=== PATIENT | female | born 1970 | race Two or more races ===

== ENCOUNTER 2016-07-30 21:12 | Observation (INO) | payer MEDICAID ==
[~2016-07-30] VITALS: Ht 160 cm; Wt 77.1 kg
[~2016-07-30 21:12] MED LIST: ABILIFY; GLYB1POW; LISIPOW; METFORMIN
[2016-07-30 21:44] LABS: Urine RBC None Seen /hpf (0 - 4)
[2016-07-30 21:56] LABS: Basophils # (auto) 0 uL; Basophils % (auto) 0.5 % (0.0-2.0); Eosinophils # (auto) 0.4 uL; Eosinophils % (auto) 4.8 % (0.0-7.0); Hematocrit 36.1 % (36.0-46.0); Hemoglobin 11.6 g/dL (12.2-16.2); Lymphocytes # (auto) 1.9 uL; Lymphocytes % (auto) 23.8 % (10.0-50.0); Mean Corpuscular Hemoglobin 29.2 pg (28.0-32.0); Mean Corpuscular Hgb Conc. 32.3 g/dL (32.0-36.0); Mean Corpuscular Volume 90.3 fL (80.0-100.0); Mean Platelet Volume 10.7 fL (7.4-10.4); Monocytes # (auto) 0.5 uL; Monocytes % (auto) 6.6 % (0.0-12.0); Neutrophils # (auto) 5.2 uL; Neutrophils % (auto) 64.3 % (37.0-80.0); Platelet Count (auto) 312 10^3/uL (140-450); Red Cell Distribution Width 13.1 % (11.6-16.0); White Blood Cell 8.1 10^3/uL (4.4-10.8)
[2016-07-30 22:04] LABS: Albumin 3.6 g/dL (3.4-5.0); Anion Gap 9 (5-15); Aspartate Aminotransferase 6 U/L (15-37); BUN/Creatinine Ratio 14.7; Blood Urea Nitrogen 11 mg/dL (7-18); Calcium 8.4 mg/dL (8.5-10.1); Carbon Dioxide 28 mmol/L (21-32); Chloride 100 mmol/L (98-107); GFR African American 107 mL/min; GFR Non-African American 88 mL/min; Glucose 326 mg/dL (74-106); Magnesium 2.2 mg/dL (1.6-2.6); Potassium 3.6 mmol/L (3.5-5.1); Sodium 137 mmol/L (136-145)
[2016-07-30 22:06] LABS: Urine Bilirubin Negative (Negative); Urine Blood Negative /uL (Negative); Urine Color Yellow (Yellow); Urine Ketone Negative (Negative); Urine Nitrite Negative (Negative); Urine Squamous Epithelial Cell FEW /hpf (<5); Urine Urobilinogen Normal (Negative)
[2016-07-30 22:09] LABS: Alkaline Phosphatase 88 U/L (45-117); Bilirubin, Total 0.2 mg/dL (0.2-1.0); Total Protein 7.8 g/dL (6.4-8.2)
[2016-07-30 22:14] LABS: Urine Glucose 4+ mg/dL (Normal)
[2016-07-30 22:17] LABS: INR 0.97 (0.9-1.15); Partial Thromboplastin Time 26.1 sec (22.64-33.71)
[2016-07-31 01:25] VITALS: BP 122/73
== END 2016-07-31 03:21 | disposition home or self-care (01) | DRG 203 ==
LOC: ER 21:12 → UNDOADMOB 21:13 → OVERFLOW 21:13 → ER 07-31 03:21 → UNDODISOB 07-31 03:21
PROVIDERS: ADMIT Emergency Medicine; ATTEND Emergency Medicine
DX: R07.89 Other chest pain (principal); I10 Essential (primary) hypertension; E10.9 Type 1 diabetes mellitus without complications; F41.9 Anxiety disorder, unspecified; M79.7 Fibromyalgia; Z79.4 Long term (current) use of insulin
CPT/HCPCS: 36415; 71010; 80053; 81001; 81025; 82962; 83735; 84484; 85025; 85610; 85730; 93005; 99285; G0378; G0434

== ENCOUNTER 2017-04-18 17:02 | Emergency (ER) | payer MEDICAID ==
[~2017-04-18] VITALS: Ht 160 cm; Wt 70.3 kg
[2017-04-18] MEDS: LORazepam 2MG/ML-1ML VIAL IV ONE (18:03)
[2017-04-18] MEDS: SODIUM CHLORIDE 0.9% 1,000 ML IV ONE (18:03)
[2017-04-18] MEDS: ASPirin 325 MG TAB PO ONE (18:38)
[2017-04-18] MEDS: NITROGLYCERIN 0.4 MG SL TAB SL ONE (18:44)
[2017-04-18] MEDS: InsuLIN REG 1unit/0.01ml Soln (100units/ml) IV ONE (18:49)
[2017-04-18 19:12] LABS: Basophils # (auto) 0.1 uL; Basophils % (auto) 1.3 % (0.0-2.0); Eosinophils # (auto) 0.2 uL; Eosinophils % (auto) 3.1 % (0.0-7.0); Hematocrit 34.9 % (36.0-46.0); Hemoglobin 11.3 g/dL (12.2-16.2); Lymphocytes # (auto) 1.5 uL; Lymphocytes % (auto) 23.4 % (10.0-50.0); Mean Corpuscular Hemoglobin 29.7 pg (28.0-32.0); Mean Corpuscular Hgb Conc. 32.4 g/dL (32.0-36.0); Mean Corpuscular Volume 91.7 fL (80.0-100.0); Mean Platelet Volume 10.1 fL (6.9-10.8); Monocytes # (auto) 0.5 uL; Monocytes % (auto) 7.4 % (0.0-12.0); Neutrophils # (auto) 4.1 uL; Neutrophils % (auto) 64.8 % (37.0-80.0); Nucleated Red Blood Cells % 0.1 %; Platelet Count (auto) 314 10^3/uL (140-450); Red Cell Distribution Width 14.8 % (11.8-14.3); White Blood Cell 6.3 10^3/uL (4.4-10.8)
[2017-04-18 19:55] LABS: Albumin 3.4 g/dL (3.4-5.0); Calcium 8.4 mg/dL (8.5-10.1); Potassium 3.4 mmol/L (3.5-5.1)
[2017-04-18 19:57] LABS: BUN/Creatinine Ratio 7.4
[2017-04-18 20:00] LABS: Bilirubin, Total 0.1 mg/dL (0.2-1.0); Total Protein 7.5 g/dL (6.4-8.2)
[2017-04-18 20:17] LABS: Urine Bilirubin Negative (Negative); Urine Blood 1+ /uL (Negative); Urine Color Yellow (Yellow); Urine Glucose 4+ mg/dL (Normal); Urine Ketone Negative (Negative); Urine Nitrite Negative (Negative); Urine RBC 7 /hpf (0 - 4); Urine Squamous Epithelial Cell FEW /hpf (<5); Urine Urobilinogen Normal (Negative); Urine pH 6.5 (5.0-8.0)
[2017-04-18] MEDS: SODIUM CHLORIDE 0.9% 2,000 ML IV ONE (21:55)
[2017-04-18] MEDS: LORazepam 0.5 MG TAB PO ONE (22:40)
[2017-04-18 23:11] LABS: B-Type Natriuretic Peptide 18.19 pg/mL (0-100)
[2017-04-18 23:12] LABS: Temperature: 23.3 C (20.0-25.0)
[2017-04-19 00:13] VITALS: BP 113/62
== END 2017-04-19 00:24 | disposition home or self-care (01) ==
LOC: EDBD 17:02 → ER 17:05
DX: R07.89 Other chest pain (principal); F41.9 Anxiety disorder, unspecified; E11.65 Type 2 diabetes mellitus with hyperglycemia; I10 Essential (primary) hypertension; R42 Dizziness and giddiness; Z79.4 Long term (current) use of insulin; Z79.82 Long term (current) use of aspirin; Z88.8 Allergy status to other drugs, medicaments and biological substances; Z88.1 Allergy status to other antibiotic agents
CPT/HCPCS: 36415; 70450; 71010; 80053; 81001; 81025; 83880; 84484; 85025; 93005; 96361; 96374; 96375; 99285; J1815; J2060; J7030

== ENCOUNTER 2017-05-02 21:33 | Emergency (ER) | payer MEDICAID ==
[~2017-05-02] VITALS: Ht 160 cm; Wt 69.4 kg
[2017-05-02 21:55] VITALS: BP 116/67
[2017-05-02 22:23] LABS: Urine Bilirubin Negative (Negative); Urine Blood 2+ /uL (Negative); Urine Color Yellow (Yellow); Urine Glucose 4+ mg/dL (Normal); Urine Ketone Negative (Negative); Urine Mucus FEW (None Seen); Urine Nitrite POSITIVE (Negative); Urine RBC 137 /hpf (0 - 4); Urine Squamous Epithelial Cell FEW /hpf (<5); Urine Urobilinogen Normal (Negative)
== END 2017-05-03 01:57 | disposition left against medical advice (07) ==
LOC: ER 21:33
DX: R30.0 Dysuria (principal); Z53.21 Procedure and treatment not carried out due to patient leaving prior to being seen by health care provider
CPT/HCPCS: 81001; 81025

== ENCOUNTER 2017-09-30 16:54 | Inpatient (IN) | payer MEDICAID ==
[~2017-09-30] VITALS: Ht 33 cm; Wt 68.8 kg
[2017-09-30] MEDS ORDERED: LORazepam 2MG/ML-1ML VIAL IV ONE ×2 (18:15→20:00)
[2017-09-30] MEDS ORDERED: SODIUM CHLORIDE 0.9% 1,000 ML IVB ONE (18:15)
[2017-09-30 18:36] LABS: Basophils # (auto) 0.1 uL; Eosinophils # (auto) 0.1 uL; Eosinophils % (auto) 2.1 % (0.0-7.0); Hematocrit 38.2 % (36.0-46.0); Hemoglobin 12.7 g/dL (12.2-16.2); Lymphocytes # (auto) 1.2 uL; Lymphocytes % (auto) 17.6 % (10.0-50.0); Mean Corpuscular Hemoglobin 30.9 pg (28.0-32.0); Mean Corpuscular Hgb Conc. 33.1 g/dL (32.0-36.0); Mean Corpuscular Volume 93.3 fL (80.0-100.0); Monocytes # (auto) 0.4 uL; Monocytes % (auto) 6.3 % (0.0-12.0); Nucleated Red Blood Cells % 0.1 %; Platelet Count (auto) 308 10^3/uL (140-450); Red Cell Distribution Width 13.1 % (11.8-14.3); White Blood Cell 6.9 10^3/uL (4.4-10.8)
[2017-09-30 18:53] LABS: Alanine Aminotransferase 14 U/L (13-56); Albumin 4.2 g/dL (3.4-5.0); Anion Gap 9 (5-15); Aspartate Aminotransferase 11 U/L (15-37); BUN/Creatinine Ratio 12.7; Blood Alcohol < 3.0 mg/dL (0-5); Blood Urea Nitrogen 9 mg/dL (7-18); Calcium 9.5 mg/dL (8.5-10.1); Carbon Dioxide 26 mmol/L (21-32); Chloride 101 mmol/L (98-107); GFR African American 113 mL/min; GFR Non-African American 93 mL/min; Glucose 274 mg/dL (74-106); Magnesium 2.2 mg/dL (1.6-2.6); Sodium 136 mmol/L (136-145)
[2017-09-30 18:56] LABS: Alkaline Phosphatase 68 U/L (45-117); Bilirubin, Total 0.3 mg/dL (0.2-1.0); Total Protein 8.3 g/dL (6.4-8.2)
[2017-09-30 19:05] LABS: Urine Bacteria NONE SEEN /hpf (None Seen); Urine Blood Negative /uL (Negative); Urine Specific Gravity 1.002 (1.001-1.035); Urine WBC <1 /hpf (0 - 5)
[2017-09-30 19:15] LABS: Alcohol, Urine < 3.0 mg/dL (0-5); Amphetamine Screen, Urine NEGATIVE (NEGATIVE); Barbiturate Scree,Urine NEGATIVE (NEGATIVE); Benzodiazephine Screen, Urine NEGATIVE (NEGATIVE); Cannabinoid Screen, Urine NEGATIVE (NEGATIVE); Cocaine Screen, Urine NEGATIVE (NEGATIVE); Opiate Scree,Urine NEGATIVE (NEGATIVE); Phencyclidine Screen, Urine NEGATIVE (NEGATIVE)
[2017-09-30] MEDS ORDERED: diphenhdrAMINE HCL 50 MG/1 ML VL IV ONE (20:00)
[2017-09-30 22:00] VITALS: BP 100/63
[2017-09-30] MEDS ORDERED: DEXTROSE (50%) 50ML SYRG IV PRN (22:00)
[2017-09-30] MEDS ORDERED: diphenhdrAMINE HCL 50 MG/1 ML VL IV PRN (22:00)
[2017-09-30] MEDS: ACCU-CHEK COMFORT CURVE STRIP VI SCH (22:12)
[2017-09-30] MEDS: InsuLIN REG 1unit/0.01ml Soln (100units/ml) SC SCH (22:17)
[2017-10-01] VITALS (8 sets, daily range): BP systolic 95–136; BP diastolic 50–76
[2017-10-01] MEDS ORDERED: TEMAZEPAM 15 MG CAP PO PRN (00:30)
[2017-10-01] MEDS ORDERED: PIO30T PO (01:42)
[2017-10-01] MEDS ORDERED: ALPR0.25 PO (01:42)
[2017-10-01] MEDS ORDERED: LORA-654 PO (01:42)
[2017-10-01] MEDS ORDERED: LISI-275 PO (01:42)
[2017-10-01] MEDS ORDERED: METF-370 PO (01:42)
[2017-10-01] MEDS ORDERED: GLYB5TAB8 PO (01:42)
[2017-10-01] MEDS: ACCU-CHEK COMFORT CURVE STRIP VI SCH ×4 (06:13→21:54)
[2017-10-01] MEDS: InsuLIN REG 1unit/0.01ml Soln (100units/ml) SC SCH ×4 (06:14→21:54)
[2017-10-01 06:20] LABS: Basophils # (auto) 0.1 uL; Eosinophils # (auto) 0.2 uL; Eosinophils % (auto) 4.2 % (0.0-7.0); Hematocrit 35.1 % (36.0-46.0); Hemoglobin 11.6 g/dL (12.2-16.2); Lymphocytes # (auto) 1.6 uL; Lymphocytes % (auto) 30.1 % (10.0-50.0); Mean Corpuscular Hemoglobin 30.7 pg (28.0-32.0); Mean Corpuscular Hgb Conc. 33.1 g/dL (32.0-36.0); Mean Corpuscular Volume 92.8 fL (80.0-100.0); Monocytes # (auto) 0.5 uL; Monocytes % (auto) 9.6 % (0.0-12.0); Neutrophils # (auto) 2.9 uL; Neutrophils % (auto) 55.1 % (37.0-80.0); Nucleated Red Blood Cells % 0.2 %; Platelet Count (auto) 255 10^3/uL (140-450); Red Blood Cells 3.78 10^6/uL (4.0-5.20); Red Cell Distribution Width 13.1 % (11.8-14.3); White Blood Cell 5.3 10^3/uL (4.4-10.8)
[2017-10-01 06:38] LABS: BUN/Creatinine Ratio 16.7; Calcium 8.4 mg/dL (8.5-10.1); Potassium 3.4 mmol/L (3.5-5.1)
[2017-10-01] MEDS ORDERED: HYDROcodone-ACET 5/325MG TAB PO ONE (08:45)
[2017-10-01] MEDS: FLUoxetine HCL 20 MG CAP PO SCH (09:53)
[2017-10-01] MEDS: LISINOPRIL 5 MG TAB PO SCH (09:54)
[2017-10-01] MEDS ORDERED: FLUoxetine HCL 20 MG CAP PO SCH (10:00)
[2017-10-01] MEDS ORDERED: LORazepam 2MG/ML-1ML VIAL IV PRN (16:30)
[2017-10-01] MEDS ORDERED: POTASSIUM CHL 20 Meq TABLET PO ONE (16:30)
[2017-10-01] MEDS ORDERED: HYDROcodone-ACET 5/325MG TAB PO PRN (16:45)
[2017-10-01] MEDS: LORazepam 2MG/ML-1ML VIAL IV PRN (17:12)
[2017-10-02 05:31] VITALS: BP 102/63
[2017-10-02] MEDS: ACCU-CHEK COMFORT CURVE STRIP VI SCH ×2 (06:06→11:30)
[2017-10-02] MEDS: InsuLIN REG 1unit/0.01ml Soln (100units/ml) SC SCH ×2 (06:06→12:25)
[2017-10-02 08:00] VITALS: BP 147/86
[2017-10-02 09:00] VITALS: BP 147/86
[2017-10-02] MEDS: FLUoxetine HCL 20 MG CAP PO SCH (09:26)
[2017-10-02] MEDS: LORazepam 2MG/ML-1ML VIAL IV PRN (09:26)
[2017-10-02] MEDS: LISINOPRIL 5 MG TAB PO SCH (09:26)
[2017-10-02] MEDS ORDERED: FLUP5TAB PO ×2 (12:24)
[2017-10-02] MEDS ORDERED: FERR-20 PO (12:24)
[2017-10-02] MEDS ORDERED: OLAN10TA29 PO (12:24)
[2017-10-02 13:00] VITALS: BP 129/70
[2017-10-02 16:49] VITALS: BP 129/70
== END 2017-10-02 17:30 | disposition home or self-care (01) | DRG 42 ==
LOC: ER 16:54 → OVERFLOW 16:55 → CENTRAL 23:37
PROVIDERS: ADMIT Nurse Practitioner Family; ATTEND Internal Medicine
DX: G20 Parkinson's disease (principal); K92.0 Hematemesis; S09.90XA Unspecified injury of head, initial encounter; G25.2 Other specified forms of tremor; D25.9 Leiomyoma of uterus, unspecified; F31.9 Bipolar disorder, unspecified; E11.9 Type 2 diabetes mellitus without complications; F41.9 Anxiety disorder, unspecified; I10 Essential (primary) hypertension; W18.39XA Other fall on same level, initial encounter; Y93.89 Activity, other specified; Y92.89 Other specified places as the place of occurrence of the external cause; Y99.8 Other external cause status; Z79.4 Long term (current) use of insulin; Z82.3 Family history of stroke; Z82.49 Family history of ischemic heart disease and other diseases of the circulatory system; Z83.3 Family history of diabetes mellitus
CPT/HCPCS: 36415; 70450; 70551; 74176; 76856; 80048; 80053; 80178; 80307; 80320; 81001; 82962; 83735; 85025; 94761; 96361; 96374; 96375; 96376; J1815

== ENCOUNTER 2020-09-24 23:44 | Emergency (ER) | payer OTHER, MEDICAID ==
[~2020-09-24] VITALS: Ht 160 cm; Wt 81.6 kg
[~2020-09-24 23:44] MED LIST changes: -ABILIFY; +FERR-20 PO; +FLUP5TAB14 PO; -GLYB1POW; +GLYB5TAB8 PO; +LISI-275 PO; -LISIPOW; +LORA0.5T20 PO; +METF-370 PO; -METFORMIN; +OLAN1TAB19 PO; +PIO30T PO
[2020-09-25 02:02] VITALS: BP 107/66
== END 2020-09-25 04:32 | disposition home or self-care (01) ==
LOC: ER 23:44
DX: M75.32 Calcific tendinitis of left shoulder (principal); M75.31 Calcific tendinitis of right shoulder; I10 Essential (primary) hypertension; E11.9 Type 2 diabetes mellitus without complications; Z90.49 Acquired absence of other specified parts of digestive tract; Z79.899 Other long term (current) drug therapy; Z88.0 Allergy status to penicillin; Z88.2 Allergy status to sulfonamides; Z88.8 Allergy status to other drugs, medicaments and biological substances
CPT/HCPCS: 73030